=== PATIENT | male | born 1985 | race Two or more races ===

== ENCOUNTER 2020-12-08 06:22 | Day surgery (SDC) | payer OTHER ==
[~2020-12-08 06:22] MED LIST: ZESTRIL10 M1 PO
[2020-12-08] MEDS ORDERED: PERCOCET 5-3251 EACH PO (11:16)
== END 2020-12-08 14:35 | disposition home or self-care (01) ==
LOC: CIR.AMB 06:22
PROVIDERS: ATTEND Surgery
DX: C20 Malignant neoplasm of rectum (principal); Z20.822 Contact with and (suspected) exposure to COVID-19
CPT/HCPCS: 36561; C1778

== ENCOUNTER 2021-06-18 10:56 | Day surgery (SDC) | payer OTHER ==
[~2021-06-18 10:56] MED LIST changes: +PERCOCET 5-3251 EACH PO
== END 2021-06-18 14:45 | disposition home or self-care (01) ==
LOC: AMB-ENDOS 10:56
PROVIDERS: ATTEND Surgery
DX: K62.89 Other specified diseases of anus and rectum (principal); Z20.822 Contact with and (suspected) exposure to COVID-19

== ENCOUNTER 2021-11-02 11:15 | Inpatient (IN) | payer OTHER ==
[~2021-11-02] VITALS: Ht 177.8 cm; Wt 99.8 kg
[2021-11-23] MEDS ORDERED: PERCOCET 5-3251 EACH PO (09:49)
[2021-11-23] MEDS ORDERED: OMEPRAZOLE20 MG PO (09:49)
== END 2021-11-23 15:04 | disposition home or self-care (01) | DRG 330 ==
LOC: SURH 11-06 07:00 → O/R 11-20 08:12 → SURH 11-20 11:15
PROVIDERS: ADMIT Surgery; ATTEND Surgery
PROC: 0DTP4ZZ Resection of Rectum, Percutaneous Endoscopic Approach (ICD-10-PCS; 2021-11-20)
PROC: 07BC4ZZ Excision of Pelvis Lymphatic, Percutaneous Endoscopic Approach (ICD-10-PCS; 2021-11-20)
PROC: 0D1B4Z4 Bypass Ileum to Cutaneous, Percutaneous Endoscopic Approach (ICD-10-PCS; 2021-11-20)
PROC: 0DTN4ZZ Resection of Sigmoid Colon, Percutaneous Endoscopic Approach (ICD-10-PCS; principal; 2021-11-20 20:00)
DX: C20 Malignant neoplasm of rectum (principal); K62.5 Hemorrhage of anus and rectum; R59.0 Localized enlarged lymph nodes; Z20.822 Contact with and (suspected) exposure to COVID-19; Z90.49 Acquired absence of other specified parts of digestive tract

== ENCOUNTER → 2021-11-15 11:49 | Outpatient (CLI) | payer OTHER | END | disposition home or self-care (01) | LOC: LAB 11:49 | PROVIDERS: ATTEND Surgery | DX: Z20.828 Contact with and (suspected) exposure to other viral communicable diseases (principal) ==